=== PATIENT | male | born 1960 | race African-American/Black ===

== ENCOUNTER 2019-09-30 14:37 | Emergency (ER) | payer OTHER ==
[~2019-09-30] VITALS: Ht 170.2 cm; Wt 72.6 kg
--- NOTE | ~2019-09-30 | EKG ---
[facility] [address] [place] [address] ELECTROCARDIOGRAM REPORT Name: CANDIE DELUCA Room #: PRE [facility].#: [id number] Admission: Attend Phys: Discharge: Date of : 62 Report #: [id number] THIS REPORT FOR: cc: Effie Chou MD ~ THIS REPORT FOR: //name// [facility] ED Test Date: 2019-09-30 Test Time: 14:46:08 Pat Name: CANDIE DELUCA Department: Room: Gender: [employer] [facility] 1960 Requested By: Cale Jarquin Order Number: [id number] MD: Measurements Intervals [place] Rate: 93 P: 77 CT: 156 QRS: 78 QRSD: 79 T: 66 QT: 347 QTc: 432 Interpretive Statements Sinus rhythm Ventricular premature complex Probable anteroseptal infarct, old No previous ECG available for comparison [email or web address] By: [id number] Effie Chou MD /EPI
[2019-09-30 15:03] LABS: ABSOLUTE NEUTROPHILS 6.9 thou/uL (1.4-8.2); BASOPHILS 0.6 % (0.0-2.0); HEMATOCRIT 43.5 % (42.0-52.0); HEMOGLOBIN 14.2 gm/dL (14.0-18.0); LYMPHOCYTES 13.5 % (24.0-44.0); MCH 27.9 pg (26.0-34.0); MCHC 32.6 g/dL (28.0-37.0); MCV 85.4 fL (80.0-100.0); MONOCYTES 6.3 % (1.0-8.0); PLATELET COUNT 271 thou/uL (150-400); POLYS 78.6 % (36.0-66.0); RBC 5.09 mil/uL (4.50-6.00); RDW 14.5 % (10.5-14.5); WBC 8.8 thou/uL (4.0-11.0)
[2019-09-30 15:13] LABS: ANION GAP 7 mmol/L (7-16); BUN 10 mg/dL (7-18); CALCIUM 9.3 mg/dL (8.5-10.1); CHLORIDE 105 mmol/L (98-107); CO2 28 mmol/L (21-32); CREATININE 1.2 mg/dL (0.7-1.3); GLUCOSE 90 mg/dL (74-106); POTASSIUM 4.2 mmol/L (3.5-5.1); SODIUM 140 mmol/L (136-145)
[2019-09-30 15:23] LABS: ALBUMIN 4.1 g/dL (3.4-5.0); SGOT 20 U/L (15-37); SGPT 31 U/L (30-65); TOTAL BILIRUBIN 0.3 mg/dL (<0.1-1.0); TOTAL PROTEIN 7.7 g/dL (6.4-8.2); TROPONIN-I <0.06 ng/mL (<0.06)
[2019-09-30] MEDS ORDERED: PRINIVIL5 MG PO (15:45)
[2019-09-30] MEDS ORDERED: PROTONIX40 M2 PO (18:17)
[2019-09-30] MEDS ORDERED: CARAFATE 1 GM TA1 G1 PO (18:17)
[2019-09-30 19:10] VITALS: BP 183/111
== END 2019-09-30 18:44 | disposition home or self-care (01) ==
LOC: ER 14:37
PROVIDERS: Emergency Medicine
DX: R07.89 Other chest pain (principal); K21.9 Gastro-esophageal reflux disease without esophagitis; I10 Essential (primary) hypertension